=== PATIENT | female | born 1945 | race Caucasian/White ===

== ENCOUNTER 2017-10-15 12:58 | Emergency (ER) | payer MEDICARE ==
[2017-10-15 13:37] VITALS: BP 119/72
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
== END 2017-10-15 14:50 | disposition home or self-care (01) ==
LOC: UCCORT 12:58
DX: R19.7 Diarrhea, unspecified (principal); S20.211A Contusion of right front wall of thorax, initial encounter; V18.4XXA Pedal cycle driver injured in noncollision transport accident in traffic accident, initial encounter; Y93.55 Activity, bike riding; Y92.9 Unspecified place or not applicable; E78.00 Pure hypercholesterolemia, unspecified; F32.9 Major depressive disorder, single episode, unspecified; Z87.891 Personal history of nicotine dependence
CPT/HCPCS: 87045; 87046; 87328; 87329; 87493; 87899; 99201; G0463